=== PATIENT | male | born 1980 | race Caucasian/White ===

== ENCOUNTER 2016-08-14 13:36 | Emergency (ER) | payer SELFPAY ==
[~2016-08-14] VITALS: Wt 59.0 kg
[2016-08-14] MEDS ORDERED: morphine 4 MG/ML VIAL IV STA (14:24)
[2016-08-14] MEDS ORDERED: SOD CHLORIDE 0.9% 1,000 ML IV STA (14:24)
[2016-08-14] MEDS ORDERED: ONDANSETRON 4 MG INJ IV STA (14:24)
[2016-08-14 14:58] LABS: ADD SCAN DIFF NO
[2016-08-14 15:00] LABS: BASOPHILS % 0.3 % (0.0-2.0); EOSINOPHILS # 0.1 10^3/ul (0.0-0.5); HEMATOCRIT 43.1 % (42.0-52.0); LYMPHOCYTES # 2.4 10^3/ul (0.8-2.9); LYMPHOCYTES % 23.5 % (15.0-51.0); MEAN CORPUSCULAR HEMOGLOBIN 29.7 pg (29.0-33.0); MEAN CORPUSCULAR HGB CONC 34.8 g/dl (32.0-37.0); MEAN CORPUSCULAR VOLUME 85.3 fl (82.0-101.0); MEAN PLATELET VOLUME 11.2 fl (7.4-10.4); MONOCYTE # 1.2 10^3/ul (0.3-0.9); MONOCYTES % 11.6 % (0.0-11.0); NEUTROPHIL # 6.5 10^3/ul (1.6-7.5); NEUTROPHILS % 63.4 % (39.0-77.0); PLATELET COUNT 359 10^3/UL (140-415); RED BLOOD COUNT 5.05 10^6/ul (4.70-6.10); RED CELL DISTRIBUTION WIDTH 12.2 % (11.5-14.5); WHITE BLOOD COUNT 10.3 10^3/ul (4.8-10.8)
[2016-08-14 15:38] LABS: POTASSIUM 3.5 mmol/L (3.5-5.1)
[2016-08-14 15:40] LABS: ALBUMIN/GLOBULIN RATIO 1.56; BILIRUBIN,INDIRECT 0.8 mg/dl (0-1.1); BILIRUBIN,TOTAL 0.8 mg/dl (0.2-1.3); CALCIUM 9.5 mg/dl (8.4-10.2); CREATININE 1.13 mg/dl (0.61-1.24); TOTAL PROTEIN 8.2 g/dl (6.1-8.1)
[2016-08-14] MEDS ORDERED: IOHEXOL 300MG/ML 150 ML BTL ONE (16:09)
[2016-08-14] MEDS ORDERED: SOD CHLORIDE 0.9% 100 ML ONE (16:09)
[2016-08-14 16:27] LABS: ADD UMIC YES; URINE BILIRUBIN (Dip) 1+ (NEGATIVE); URINE BLOOD (Dip) NEGATIVE (NEGATIVE); URINE COLOR YELLOW (YELLOW); URINE GLUCOSE (Dip) NEGATIVE (NEGATIVE); URINE KETONES (Dip) 15 (NEGATIVE); URINE LEUKOCYTE ESTERASE (Dip) NEGATIVE (NEGATIVE); URINE NITRITE (Dip) NEGATIVE (NEGATIVE); URINE TOTAL PROTEIN (Dip) TRACE (NEGATIVE); URINE UROBILINOGEN (Dip) 0.2 E.U./dL (0.1-1.0)
--- NOTE | 2016-08-14 16:34 | RADRPT ---
PROCEDURE: CT abdomen and pelvis with contrast. CLINICAL INDICATION: Abdominal pain TECHNIQUE: CT scan of the abdomen and pelvis with contrast [facility] The patient was scanned following the uncomplicated intravenous administration 85 cc of Omnipaq [id number]. Coronal and sagittal reformatted images were obtained from the axial source images. One or more of the following does reduction techniques were used: Automated exposure control; adjustment o f the mA and/or kV according to patient size; use of the aorta of reconstruction technique. Images w ere reviewed on a high-resolution PACS workstation. The total exam CTDI equals 7.2 mGy and the total exam DLP equals 366.9 mGy-cm. COMPARISON: None. FINDINGS: There are mild dependent changes in the left posterior lung base. The lung bases are otherwise laurita r. The heart size is normal, without pericardial thickening or effusion. There are a few splenic calcifications. The liver is mildly enlarged. The liver, spleen, and pancr eas are otherwise normal. The gallbladder is normal. The adrenal glands are symmetric and normal. The kidneys show normal and symmetric enhancement. No renal calculus or obstructive uropathy is seen. The aorta is of normal caliber. There is no retroperitoneal lymph node enlargment. There is no evidence of large or small bowel obstruction. The majority of a normal appendix is ident ified. There is no secondary evidence of acute appendicitis. No free fluid or fluid collections are identified. No inflammatory changes are seen. The bladder is decompressed and collapsed There is no evidence of pelvic sidewall lymph node enlarg ement. There is no pelvic free fluid. The inguinal regions are unremarkable. The osseous structures are intact. IMPRESSION: 1. No CT evidence of acute intra-abdominal or pelvic process. 2. Splenic calcifications consistent with old granulomatous disease. 3. Mild hepatomegaly. RPTAT: AA .Fransico Peck MD, MD Date Time Electronically viewed and signed by .Fransico Peck MD, MD on 08/14/2016 16:34 .B/
[2016-08-14] MEDS ORDERED: HYDR-906 PO (16:47)
[2016-08-14] MEDS ORDERED: ONDA8TAB14 PO (16:47)
--- NOTE | 2016-08-14 16:51 | ERD ---
ER Documentation Chief Complaint Date/Time DATE: 08/14/16 TIME: 16:49 Chief Complaint 2 days abd pain with vomiting no diarrhea. unable to emma po intake HPI This 36-year-old male complains of a 2 day history of generalized abdominal pain and vomiting which is nonbilious nonbloody. He denies diarrhea. He had a normal last bowel movement. Denies urinary complaints, fevers. Patient gives a history of recurrent abdominal pain although does not give specific dates. He may have been 2-3 years intermittently. He states that he has had laboratory work CT scans, ultrasounds, MRI without a definitive diagnosis. Denies alcohol use. Patient's no prior visits at this hospital or on review of the [facility] report the last 6 months ROS All systems reviewed and are negative except as per history of present illness. Medications Home Meds Active Scripts Ondansetron (Ondansetron Odt) 8 Mg Tab.rapdis, 8 MG PO Q6H Y for NAUSEA AND/OR VOMITING, #10 TAB Prov:IRINA ZELAYA MD 08/14/16 Hydrocodone/Acetaminophen (Lamar 5-325 Tablet) 1 Each Tablet, 1 TAB PO Q6H Y for PAIN, #15 TAB Prov:IRINA ZELAYA MD 08/14/16 PMhx/Soc Medical and Surgical Hx: pt denies Medical Hx, pt denies Surgical Hx History of Surgery: No Anesthesia Reaction: No Hx Neurological Disorder: No Hx Respiratory Disorders: No Hx Cardiac Disorders: No Hx Psychiatric Problems: No Hx Miscellaneous Medical Probl: No Hx Alcohol Use: No Hx Substance Use: Yes (MARIJUANA) Hx Tobacco Use: No Smoking Status: Never smoker Physical Exam Vitals Vital Signs Date Time Temp Pulse Resp B/P Pulse Ox O2 Delivery O2 Flow Rate FiO2 08/14/16 13:40 98.1 127 20 132/71 94 Physical Exam Const: [] Alert, [id number]. Head: Atraumatic Eyes: Normal Conjunctiva ENT: Normal External Ears, Nose and Mouth. Neck: Full range of motion..~ No meningismus. Resp: Clear to auscultation bilaterally Cardio: Regular rate and rhythm, no murmurs Abd: Soft, mild generalized tenderness without focal tenderness. No exquisite tenderness at McBurney's point no Jackson sign. non distended. Normal bowel sounds. Patient is noted to be amatory without significant pain or discomfort Skin: No petechiae or rashes Back: No midline or flank tenderness Ext: No cyanosis, or edema Neur: Awake and alert Psych: Normal Mood and Affect Result Diagram: 08/14/16 1435 08/14/16 1435 Results 24 hrs Laboratory Tests Test 08/14/16 14:35 White Blood Count 10.310^3/ul Red Blood Count 5.0510^6/ul Hemoglobin 15.0g/dl Hematocrit 43.1% Mean Corpuscular Volume 85.3fl Mean Corpuscular Hemoglobin 29.7pg Mean Corpuscular Hemoglobin Concent 34.8g/dl Red Cell Distribution Width 12.2% Platelet Count 72220^3/UL Mean Platelet Volume 11.2fl Neutrophils % 63.4% Lymphocytes % 23.5% Monocytes % 11.6% Eosinophils % 1.0% Basophils % 0.3% Nucleated Red Blood Cells % 0.0/100WBC Neutrophils # 6.510^3/ul Lymphocytes # 2.410^3/ul Monocytes # 1.210^3/ul Eosinophils # 0.110^3/ul Basophils # 0.010^3/ul Nucleated Red Blood Cells # 0.010^3/ul Sodium Level 140mmol/L Potassium Level 3.5mmol/L Chloride Level 95mmol/L Carbon Dioxide Level 30mmol/L Anion Gap 19 Blood Urea Nitrogen 17mg/dl Creatinine 1.13mg/dl Glucose Level 96mg/dl Calcium Level 9.5mg/dl Total Bilirubin 0.8mg/dl Direct Bilirubin 0.00mg/dl Indirect Bilirubin 0.8mg/dl Aspartate Amino Transf (AST/SGOT) 39IU/L Alanine Aminotransferase (ALT/SGPT) 75IU/L Alkaline Phosphatase 46IU/L Total Protein 8.2g/dl Albumin 5.0g/dl Globulin 3.20g/dl Albumin/Globulin Ratio 1.56 Lipase 1500U/L Current Medications Medications (Trade) Dose Ordered Sig/Lesley Route PRN Reason Start Time Stop Time Status Last Admin Dose Admin Sodium Chloride (NS) 1,000 ml @ 1,000 mls/hr Q1H STAT IV 08/14/16 14:24 08/14/16 15:23 DC 08/14/16 14:38 Morphine Sulfate (morphine) 4 mg ONCE STAT IV 08/14/16 14:24 08/14/16 14:26 DC 08/14/16 14:38 Ondansetron HCl (Zofran Inj) 4 mg ONCE STAT IV 08/14/16 14:24 08/14/16 14:26 DC 08/14/16 14:38 IV Flush 10 ml 10 ml STK-MED ONCE .ROUTE 08/14/16 16:09 08/14/16 16:10 DC 08/14/16 16:24 Sodium Chloride (NS) 100 ml @ ud STK-MED ONCE .ROUTE 08/14/16 16:09 08/14/16 16:10 DC 08/14/16 16:24 Iohexol (Omnipaque 300mg/ ml) 150 ml STK-MED ONCE .ROUTE 08/14/16 16:09 08/14/16 16:10 DC 08/14/16 16:24 Procedures/MDM CBC is normal. CMP is normal and lipase is 1500. Patient was given morphine 4 mg IV, Zofran 4 mg IV 1 L normal saline IV. CT abdomen pelvis with IV contrast shows no acute abnormalities. Patient felt better after observation treatment. Patient presents with abdominal pain with a history of intermittent abdominal pain of uncertain duration or frequency signs of acute pancreatitis. Admission to the hospital was discussed with the patient. Patient's symptoms resolved with observation and treatment here and declined admission. Patient wishes to go home as he has a lot of important meetings. He will treated with a short course of Lamar and Zofran instructions for bland diet and clear fluids. Patient should return for fevers, vomiting, worsening pain, blood, new or worsening symptoms as. After instructions otherwise with primary doctor and gastroenterology. The patient was stable with no new complaints during the ER course. Clinically, there is no current evidence to suggest meningitis, sepsis, acute abdomen, pneumonia, acute coronary syndrome, pulmonary embolism, or any other emergent condition appearing to require further evaluation or hospitalization. The patient should certainly return for any new or worsening symptoms per the aftercare instructions. They should otherwise follow-up with her primary care doctor for reevaluation this week. Departure Diagnosis: Primary Impression: Pancreatitis Chronicity: acute Pancreatitis type: unspecified pancreatitis type Acute pancreatitis complication: unspecified Qualified Code: K85.90 - Acute pancreatitis, unspecified complication status, unspecified pancreatitis type Additional Impression: Abdominal pain Abdominal location: epigastric Qualified Code: R10.13 - Epigastric pain Condition: Stable Patient Instructions: Abdominal Pain, Pancreatitis Additional Instructions: Laboratory results confirmed pancreatitis is likely cause of pain. You have declined admission. CT shows no acute abnormalities. Recommend bland diet, clear fluids and return for fevers, vomiting, worsening pain. See primary doctor gastroenterology for further evaluation. Avoid alcohol use. IRINA ZELAYA MD August 14, 2016 16:51
[2016-08-14 16:56] LABS: ICTOTEST NEGATIVE (NEGATIVE)
[2016-08-14 16:58] LABS: BACTERIA,URINE FEW; MUCUS,URINE MODERATE; URINE RBCS 0-2 /HPF (0)
[2016-08-14 16:59] VITALS: BP 122/75; PULSE 56; RESP 20; TEMP 98.3
== END 2016-08-14 17:01 | disposition home or self-care (01) ==
LOC: FTE 13:36
DX: K85.90 Acute pancreatitis without necrosis or infection, unspecified (principal); R10.13 Epigastric pain; R11.10 Vomiting, unspecified
CPT/HCPCS: 74177; 80053; 81001; 81003; 83690; 85025; J2270; J2405; J7030; Q9967; 36415; 96374; 96375